=== PATIENT | male | born 1975 ===

== ENCOUNTER 2024-12-16 05:13 | Emergency (ER) | payer OTHER ==
[~2024-12-16] VITALS: Ht 170.2 cm; Wt 54.4 kg
[2024-12-16] MEDS ORDERED: RESTORIL15 M1 PO (05:25)
[2024-12-16] MEDS ORDERED: CLORAZEPATE D3.75 MG PO (05:25)
== END 2024-12-16 05:26 | disposition left against medical advice (07) ==
LOC: ER 05:13
DX: Z53.21 Procedure and treatment not carried out due to patient leaving prior to being seen by health care provider (principal)